=== PATIENT | female | born 1990 | race Asian ===

== ENCOUNTER → 2024-11-17 14:32 | Outpatient (CLI) | payer SELFPAY ==
[2024-11-17 15:13] LABS: Influenza A - CEPHEID Flu A NEGATIVE (NEGATIVE); Influenza B - CEPHEID Flu B NEGATIVE (NEGATIVE); Respiratory Syncytial Virus Negative (Negative)
[2024-11-17 15:16] LABS: COVID-19 CEPHEID 4-PLEX PCR Negative (Negative)
== END ==
PROVIDERS: Visit Provider Chiropractor
DX: R05.1 Acute cough (principal)
CPT/HCPCS: 0241U